=== PATIENT | female | born 1970 | race Caucasian/White ===

== ENCOUNTER 2018-04-26 21:41 | Emergency (ER) | payer BC ==
[~2018-04-26] VITALS: Ht 157.5 cm; Wt 62.6 kg
[2018-04-26 21:46] VITALS: BP_SYST 115
[2018-04-26] MEDS ORDERED: NACL 0.9% 1,000 ML IV ONE (22:12)
[2018-04-26] MEDS ORDERED: KETOROLAC TROMETHAMINE 30 MG VIAL IVP ONE (22:15)
[2018-04-26 22:40] LABS: BASOPHILS # (AUTO) 0.1 K/uL (0.0-0.2); BASOPHILS % (AUTO) 0.9 % (0.0-2.0); EOSINOPHILS % (AUTO) 0.1 % (0.0-4.0); HEMATOCRIT 44.5 % (36-48); HEMOGLOBIN 14.2 g/dL (12.0-16.0); LYMPHOCYTES # (AUTO) 1.6 K/uL (1.0-5.5); LYMPHOCYTES % (AUTO) 22.9 % (20.5-51.5); MEAN CORPUSCULAR HEMOGLOBIN 29 pg (27-31); MEAN CORPUSCULAR HGB CONC 32 % (32-36); MEAN CORPUSCULAR VOLUME 89 fL (79.0-98.0); MONOCYTES # (AUTO) 0.4 K/uL (0.0-1.0); MONOCYTES % (AUTO) 5.4 % (1.7-9.3); NEUTROPHILS # (AUTO) 4.8 K/uL (1.8-7.7); NEUTROPHILS % (AUTO) 70.7 % (40.0-70.0); PLATELET COUNT (AUTO) 355 K/uL (130-430); RED BLOOD CELL COUNT(AUTO) 4.98 MIL/uL (4.2-6.2); RED CELL DISTRIBUTION WIDTH 12.8 % (9.0-15.0); WHITE BLOOD COUNT (AUTO) 6.9 K/uL (4.8-10.8)
[2018-04-26 22:53] LABS: CALCIUM 9.6 mg/dL (8.4-11.0); CREATININE 0.94 mg/dL (0.55-1.30); POTASSIUM 3.4 mmol/L (3.5-5.1)
[2018-04-26 22:57] LABS: BILIRUBIN,URINE NEGATIVE (NEGATIVE); CLARITY/URINE CLEAR (CLEAR); COLOR,URINE YELLOW (YELLOW); GLUCOSE,URINE NEGATIVE (NEGATIVE); KETONES,URINE NEGATIVE (NEGATIVE); LEUKOCYTE ESTERASE ,URINE NEGATIVE (NEGATIVE); NITRITE, URINE NEGATIVE (NEGATIVE); PH,URINE 5.5 (5.0-8.0); PROTEIN URINE NEGATIVE (NEGATIVE); UROBILINOGEN,URINE 0.2 (0.2-1.0)
[2018-04-26 22:58] LABS: BLOOD, URINE TRACE (NEGATIVE)
[2018-04-26 22:58] LABS: ALBUMIN 3.8 g/dL (3.4-4.8); INR 0.9 (0.8-1.2); PROTHROMBIN TIME 9.5 SECS (9.5-12.5); TOTAL BILIRUBIN 0.3 mg/dL (0.0-1.0)
[2018-04-26 23:08] LABS: BACTERIA,URINE FEW /HPF (None Seen); MUCUS,URINE None Seen /LPF (None Seen); WBC,URINE 0-3 /HPF (0-3); YEAST,URINE None Seen /HPF (None Seen)
[2018-04-26] MEDS ORDERED: IOHEXOL 100 ML IV ONE (23:20)
[2018-04-27] MEDS ORDERED: PANT20TA2 PO (00:20)
[2018-04-27] MEDS ORDERED: LOSA50TA3 PO (00:20)
[2018-04-27 01:05] VITALS: BP_SYST 114
== END 2018-04-27 01:05 | disposition home or self-care (01) ==
LOC: SED 21:41
DX: K52.9 Noninfective gastroenteritis and colitis, unspecified (principal); I10 Essential (primary) hypertension; Z90.710 Acquired absence of both cervix and uterus
CPT/HCPCS: 36415; 74177; 80053; 81000; 83690; 85025; 85610; 85730; 96361; 96374; 99284; J1885; J7030; Q9967

== ENCOUNTER 2022-07-05 16:18 | Emergency (ER) | payer SELFPAY ==
[~2022-07-05] VITALS: Ht 157.5 cm; Wt 69.4 kg
[~2022-07-05 16:18] MED LIST: ALBMDI INH; LOSA50TA3 PO; PANT20TA2 PO
[2022-07-05 17:00] VITALS: BP_SYST 162
--- NOTE | 2022-07-05 17:26 | NUR ---
Patient triaged and placed in waiting room. VSS and patient appears in no acute distress at this time. Accompanied by SELF, awaiting available bed, and MD notified of need for MSE.
--- NOTE | 2022-07-05 17:50 | NUR ---
ER DR. ORTIZ EXAMINING PT
[2022-07-05] MEDS ORDERED: KETOROLAC TROMETHAMINE 60 MG/2 ML VIAL IM ONE ×2 (18:00→22:35)
[2022-07-05] MEDS ORDERED: DICL20GE PO (20:19)
[2022-07-05] MEDS ORDERED: DICL75TA5 PO (20:19)
--- NOTE | 2022-07-05 21:30 | NUR ---
Attempted to medicate pt. Pt not present to ER waiting room or outside of ER.
--- NOTE | 2022-07-05 21:45 | NUR ---
Attempted to medicate pt. Pt not present to ER waiting room or outside of ER.
--- NOTE | 2022-07-05 22:00 | NUR ---
Attempted to medicate pt. Pt not present to ER waiting room or outside of ER. Pt left without signing discharge papers.
== END 2022-07-05 22:00 | disposition home or self-care (01) ==
LOC: SED 16:18
DX: M54.32 Sciatica, left side (principal); M79.662 Pain in left lower leg; I10 Essential (primary) hypertension; Z79.899 Other long term (current) drug therapy
CPT/HCPCS: 99284; 93971; J1885

== ENCOUNTER 2023-05-13 18:06 | Emergency (ER) | payer BC, OTHER ==
[~2023-05-13 18:06] MED LIST changes: +DICL20GE PO; +DICL75TA5 PO; +LOSA-413 PO; -LOSA50TA3 PO
== END 2023-05-13 18:20 | disposition left against medical advice (07) ==
LOC: SED 18:06
DX: R06.02 Shortness of breath (principal); R07.9 Chest pain, unspecified; Z53.21 Procedure and treatment not carried out due to patient leaving prior to being seen by health care provider

== ENCOUNTER 2023-05-22 13:53 | Emergency (ER) | payer BC, OTHER ==
[~2023-05-22] VITALS: Ht 162.6 cm; Wt 68.0 kg
[2023-05-22 13:58] VITALS: BP_SYST 136; PULSE 85; RESP 20; TEMP 98.3; O2SAT 98
[2023-05-22] MEDS ORDERED: KETOROLAC TROMETHAMINE 60 MG/2 ML VIAL IM ONE (14:15)
[2023-05-22] MEDS ORDERED: GENT5DRO7 EACH EYE (16:39)
[2023-05-22 16:50] VITALS: O2SAT 94
[2023-05-22 16:56] VITALS: BP_SYST 121; PULSE 76; RESP 18; TEMP 97.9
== END 2023-05-22 16:58 | disposition home or self-care (01) ==
LOC: SED 13:53
DX: H11.33 Conjunctival hemorrhage, bilateral (principal); H57.89 Other specified disorders of eye and adnexa; M54.2 Cervicalgia; R51.9 Headache, unspecified; I10 Essential (primary) hypertension; Z79.899 Other long term (current) drug therapy
CPT/HCPCS: 99285; 70450; 72125; 76376; 96372; J1885

== ENCOUNTER 2024-04-07 09:52 | Emergency (ER) | payer OTHER ==
[~2024-04-07] VITALS: Ht 157.5 cm; Wt 57.6 kg
[~2024-04-07 09:52] MED LIST changes: +DIPH25CA83 PO; +GENT5DRO7 EACH EYE; +PRED20TA PO
[2024-04-07 09:58] VITALS: BP_SYST 118; PULSE 95; RESP 18; TEMP 98.3; O2SAT 98
[2024-04-07 10:36] LABS: ERYTHROCYTE SEDIMENTATION RATE 44 MM/HR (0-20)
[2024-04-07 10:40] LABS: BASOPHILS # (AUTO) 0.1 K/uL (0.0-0.2); EOSINOPHILS # (AUTO) 0.3 K/uL (0.0-0.4); HEMATOCRIT 37.1 % (36-48); HEMOGLOBIN 11.7 g/dL (12.0-16.0); LYMPHOCYTES # (AUTO) 1.2 K/uL (1.0-5.5); LYMPHOCYTES % (AUTO) 16.9 % (20.5-51.5); MEAN CORPUSCULAR HEMOGLOBIN 25 pg (27-31); MEAN CORPUSCULAR HGB CONC 32 % (32-36); MEAN CORPUSCULAR VOLUME 79 fL (79.0-98.0); MONOCYTES # (AUTO) 0.8 K/uL (0.0-1.0); MONOCYTES % (AUTO) 11.4 % (1.7-9.3); NEUTROPHILS # (AUTO) 4.9 K/uL (1.8-7.7); NEUTROPHILS % (AUTO) 66.7 % (40.0-70.0); PLATELET COUNT (AUTO) 411 K/uL (130-430); RED BLOOD CELL COUNT(AUTO) 4.73 MIL/uL (4.2-6.2); RED CELL DISTRIBUTION WIDTH 18.6 % (9.0-15.0); WHITE BLOOD COUNT (AUTO) 7.4 K/uL (4.8-10.8)
[2024-04-07 10:51] LABS: PROTHROMBIN TIME 10.4 SECS (9.5-12.5)
[2024-04-07 11:19] LABS: CREATININE 0.71 mg/dL (0.55-1.30); POTASSIUM 3.3 mmol/L (3.5-5.1)
[2024-04-07] MEDS ORDERED: IBUP-1969 PO (11:56)
[2024-04-07] MEDS ORDERED: HYDR-3927 PO (11:56)
[2024-04-07 12:07] VITALS: BP_SYST 116; PULSE 82; RESP 22; TEMP 97; O2SAT 94
== END 2024-04-07 12:08 | disposition home or self-care (01) ==
LOC: SED 09:52
DX: M54.2 Cervicalgia (principal); H92.02 Otalgia, left ear; I10 Essential (primary) hypertension; E78.5 Hyperlipidemia, unspecified; G47.33 Obstructive sleep apnea (adult) (pediatric); Z79.1 Long term (current) use of non-steroidal anti-inflammatories (NSAID); Z79.52 Long term (current) use of systemic steroids; Z79.899 Other long term (current) drug therapy
CPT/HCPCS: 36415; 70450-TC; 80048; 85025; 85610; 85651; 85730; 99284